=== PATIENT | female | born 1995 | race Caucasian/White ===

== ENCOUNTER → 2016-11-11 | Outpatient (CLI) | payer OTHER ==
[~2016-11-11] MED LIST: COLACE 100100 MG/CAP PO; MILK OF MA400 MG/51 PO; NEXIUM 40MG40 MG PO; NORCO 325 MG-51 TAB PO; PREDNISONE20 M1 PO; VIBRAMYCIN100 MG PO
== END ==
LOC: LAB 11:51
DX: R03.0 Elevated blood-pressure reading, without diagnosis of hypertension (principal); N89.8 Other specified noninflammatory disorders of vagina; R10.814 Left lower quadrant abdominal tenderness; R10.9 Unspecified abdominal pain
CPT/HCPCS: Q0111

== ENCOUNTER → 2017-02-03 | Outpatient (CLI) | payer OTHER ==
[2016-05-10 15:51] VITALS: BP 133/69
== END ==
LOC: LAB 10:39
DX: J02.8 Acute pharyngitis due to other specified organisms (principal)

== ENCOUNTER 2017-04-18 00:10 | Emergency (ER) | payer OTHER ==
[~2017-04-18] VITALS: Ht 167.6 cm; Wt 59.1 kg
[2017-04-18 01:43] VITALS: BP 142/87
== END 2017-04-18 01:43 | disposition home or self-care (01) ==
LOC: ED 00:10
DX: N92.0 Excessive and frequent menstruation with regular cycle (principal)
CPT/HCPCS: 13312

== ENCOUNTER → 2019-03-15 | Outpatient (CLI) | payer BC | LOC: LAB 10:15 | DX: N30.00 Acute cystitis without hematuria (principal) ==

== ENCOUNTER 2019-10-07 16:42 | Emergency (ER) | payer BC ==
[~2019-10-07] VITALS: Ht 167.6 cm; Wt 83.5 kg
[2019-10-07 16:47] VITALS: BP 154/81
== END 2019-10-07 17:45 | disposition home or self-care (01) ==
LOC: ED 16:42
DX: O20.0 Threatened abortion (principal); Z87.59 Personal history of other complications of pregnancy, childbirth and the puerperium

== ENCOUNTER 2019-10-26 22:20 | Emergency (ER) | payer BC, MEDICAID ==
[~2019-10-26] VITALS: Ht 167.6 cm; Wt 81.8 kg
[2019-10-26] MEDS ORDERED: PRENATAL 191 TAB PO (22:51)
[2019-10-26 23:31] LABS: EOS # 0.2 (0.04-0.40); EOS % 1.4 % (1.0-5.0); HEMOGLOBIN 13.5 g/dL (12.5-16.0); LYMPH# 2.4 (1.50-4.00); MEAN CELL VOLUME 85 fl (78-100); MEAN CORPUSCULAR HEMOGLOBIN 28 pg (27-31); MEAN CORPUSCULAR HGB CONC 33 g/dL (33-37); MEAN PLATELET VOLUME 10.8 fl (7.4-10.4); MONO # 0.8 (0.20-0.80); NEU # 8.3 (1.40-6.50); PLATELET COUNT 214 K/mm3 (130-400); RED BLOOD COUNT 4.81 M/mm3 (4.10-5.30); RED CELL DISTRIBUTION WIDTH 13.1 % (11.5-14.5); WHITE BLOOD COUNT 11.7 K/mm3 (4.8-10.8)
[2019-10-27 00:20] VITALS: BP 139/83
== END 2019-10-27 00:20 | disposition home or self-care (01) ==
LOC: ED 22:20
PROVIDERS: Family Medicine
DX: O46.91 Antepartum hemorrhage, unspecified, first trimester (principal); O99.331 Smoking (tobacco) complicating pregnancy, first trimester; F17.210 Nicotine dependence, cigarettes, uncomplicated; Z3A.09 9 weeks gestation of pregnancy

== ENCOUNTER 2019-11-09 01:00 | Emergency (ER) | payer BC, MEDICAID ==
[~2019-11-09] VITALS: Ht 170.2 cm; Wt 80.9 kg
[~2019-11-09 01:00] MED LIST changes: +PRENATAL 191 TAB PO
[2019-11-09 01:41] LABS: EOS # 0.3 (0.04-0.40); EOS % 1.7 % (1.0-5.0); HEMATOCRIT 33.1 % (37.0-47.0); LYMPH# 2.9 (1.50-4.00); MEAN CELL VOLUME 84 fl (78-100); MEAN CORPUSCULAR HEMOGLOBIN 28 pg (27-31); MEAN CORPUSCULAR HGB CONC 33 g/dL (33-37); MEAN PLATELET VOLUME 10.2 fl (7.4-10.4); MONO # 1.4 (0.20-0.80); PLATELET COUNT 235 K/mm3 (130-400); RED BLOOD COUNT 3.94 M/mm3 (4.10-5.30); RED CELL DISTRIBUTION WIDTH 13.1 % (11.5-14.5); WHITE BLOOD COUNT 15.5 K/mm3 (4.8-10.8)
[2019-11-09 01:42] LABS: NEU # 10.9 (1.40-6.50)
[2019-11-09 01:51] LABS: ALBUMIN 3.3 g/dL (3.5-5.0); POTASSIUM 4.2 mmol/L (3.5-5.1)
[2019-11-09 01:53] LABS: CALCIUM 8.9 mg/dL (8.3-10.5)
[2019-11-09 01:54] LABS: TOTAL PROTEIN 5.9 g/dL (6.4-8.3)
[2019-11-09 01:56] LABS: TOTAL BILIRUBIN 0.1 mg/dL (0.2-1.2)
[2019-11-09 02:12] LABS: PARTIAL THROMBOPLASTIN TIME 23.1 SECONDS (21.0-32.0); PROTHROMBIN TIME 8.9 SECONDS (9.0-12.0)
[2019-11-09 04:05] VITALS: BP 125/76
== END 2019-11-09 04:05 | disposition home or self-care (01) ==
LOC: ED 01:00
PROVIDERS: Nurse Practitioner Family
DX: O03.6 Delayed or excessive hemorrhage following complete or unspecified spontaneous abortion (principal); O99.331 Smoking (tobacco) complicating pregnancy, first trimester; F17.210 Nicotine dependence, cigarettes, uncomplicated; Z87.59 Personal history of other complications of pregnancy, childbirth and the puerperium; Z3A.00 Weeks of gestation of pregnancy not specified
CPT/HCPCS: J1170; J3010; J7030

== ENCOUNTER 2019-11-12 15:42 | Emergency (ER) | payer BC, MEDICAID ==
[2019-11-12 17:01] VITALS: BP 145/80
== END 2019-11-12 16:30 | disposition home or self-care (01) ==
LOC: ED 15:42
DX: O03.4 Incomplete spontaneous abortion without complication (principal); Z87.59 Personal history of other complications of pregnancy, childbirth and the puerperium

== ENCOUNTER → 2020-01-02 | Outpatient (CLI) | payer MEDICAID | LOC: LAB 15:14 | DX: Z32.01 Encounter for pregnancy test, result positive (principal) ==

== ENCOUNTER 2021-04-06 16:31 | Emergency (ER) | payer MEDICAID ==
[2021-04-06] MEDS ORDERED: IBUPROFEN600 M1 PO (16:41)
[2021-04-06] MEDS ORDERED: CYCLOBENZAPRINE10 M1 PO (17:05)
[2021-04-06 17:22] VITALS: BP 133/87
== END 2021-04-06 17:21 | disposition home or self-care (01) ==
LOC: ED 16:31
DX: M54.16 Radiculopathy, lumbar region (principal); M54.41 Lumbago with sciatica, right side
CPT/HCPCS: J1885

== ENCOUNTER 2024-05-10 19:03 | Emergency (ER) | payer MEDICAID ==
[~2024-05-10 19:03] MED LIST changes: +CYCLOBENZAPRINE10 M1 PO; +IBUPROFEN600 M1 PO
[2024-05-10 19:18] VITALS: BP 141/104
[2024-05-10] MEDS ORDERED: Ketorolac 30 MG/ML VIAL IM ONE (19:45)
[2024-05-10] MEDS ORDERED: Cyclobenzaprine 10 MG TAB PO ONE (19:45)
[2024-05-10] MEDS ORDERED: CYCLOBENZAPRINE10 M1 PO (20:00)
== END 2024-05-10 20:45 | disposition home or self-care (01) ==
LOC: ED 19:03
DX: M54.31 Sciatica, right side (principal); F17.200 Nicotine dependence, unspecified, uncomplicated
CPT/HCPCS: J1885